=== PATIENT | female | born 1950 | race Caucasian/White ===

== ENCOUNTER 2018-11-03 13:02 | Emergency (ER) | payer OTHER | END 2018-11-03 16:16 | disposition home or self-care (01) | LOC: FTE 13:02 | DX: M71.21 Synovial cyst of popliteal space [Baker], right knee (principal); E11.9 Type 2 diabetes mellitus without complications; Z79.82 Long term (current) use of aspirin; Z79.84 Long term (current) use of oral hypoglycemic drugs | CPT/HCPCS: 93971; 99284-25 ==